=== PATIENT | female | born 1995 | race Caucasian/White ===

== ENCOUNTER 2022-11-10 06:15 | Day surgery (SDC) | payer OTHER ==
[~2022-11-10] VITALS: Ht 162.6 cm; Wt 90.7 kg
[2022-11-10] MEDS ORDERED: ONDANSETRON 4 MG/2 ML VIAL ONE ×2 (07:00→08:05)
[2022-11-10] MEDS ORDERED: DEXAMETHASONE 4 MG/ML VIAL ONE ×2 (07:00→09:08)
[2022-11-10] MEDS ORDERED: MEPERIDINE 50 MG/ML SYR ONE ×2 (07:00→09:04)
[2022-11-10] MEDS ORDERED: fentaNYL citrate 0.05 MG/ML - 50mL vial IV ONE (07:00)
[2022-11-10] MEDS ORDERED: SEVOFLURANE 250 ML BTL INH ONE (07:00)
[2022-11-10] MEDS ORDERED: PROPOFOL 200 MG/20 ML VIAL IV ONE ×2 (07:00→07:14)
[2022-11-10] MEDS ORDERED: fentaNYL citrate 0.05 MG/ML VIAL ONE (07:14)
[2022-11-10 07:40] LABS: BASOPHILS # (AUTO) 0.1 K/uL (0.00-0.22); BASOPHILS % (AUTO) 0.7 % (0.0-2.0); EOSINOPHILS # (AUTO) 1.3 K/uL (0-0.4); EOSINOPHILS % (AUTO) 12.1 % (0.0-4.0); HEMOGLOBIN 13.3 g/dL (12.0-16.0); LYMPHOCYTES # (AUTO) 2.3 K/uL (2.5-16.5); LYMPHOCYTES % (AUTO) 21.4 % (20.5-51.1); MEAN CORPUSCULAR HEMOGLOBIN 26 pg (27-31); MEAN CORPUSCULAR HGB CONC 33 g/dL (33-37); MEAN CORPUSCULAR VOLUME 80.4 fL (80-94); MONOCYTES # (AUTO) 0.6 K/uL (0.8-1.0); MONOCYTES % (AUTO) 5.5 % (1.7-9.3); NEUTROPHILS # (AUTO) 6.6 K/uL (1.8-7.7); NEUTROPHILS % (AUTO) 60.3 % (42.2-75.2); PLATELET COUNT (AUTO) 440 K/uL (140-450); RED BLOOD CELL COUNT(AUTO) 5.09 MIL/uL (4.20-5.40); RED CELL DISTRIBUTION WIDTH 15.6 % (11.6-13.7); WHITE BLOOD COUNT (AUTO) 10.9 K/uL (4.8-10.8)
[2022-11-10] MEDS ORDERED: MEPERIDINE 25 MG/ML SYR IVP PRN (07:55)
[2022-11-10] MEDS ORDERED: LACTATED RINGERS 1,000 ML IV SCH (07:55)
[2022-11-10] MEDS ORDERED: HYDROmorphone 1 MG/ML AMP IVP PRN (07:55)
[2022-11-10] MEDS ORDERED: ONDANSETRON 4 MG/2 ML VIAL IVP PRN ×2 (07:55→09:55)
[2022-11-10] MEDS ORDERED: diphenhydrAMINE 50 MG/ML VIAL IVP PRN ×2 (07:55→09:55)
[2022-11-10 07:56] LABS: ALBUMIN 3.8 g/dL (3.4-5.0); ANION GAP 11.6 (8-16); CARBON DIOXIDE 27.3 mmol/L (21-32); CREATININE 0.7 mg/dL (0.6-1.3); POTASSIUM 3.9 mmol/L (3.5-5.1); TOTAL BILIRUBIN 0.3 mg/dL (0.0-1.0)
[2022-11-10] MEDS ORDERED: oxyCODONE/APAP 5/325 MG 1 TAB TAB PO PRN (09:55)
[2022-11-10] MEDS ORDERED: IBUPROFEN 800 MG TAB PO PRN (10:20)
[2022-11-10] MEDS ORDERED: IBUP-2213 PO (10:22)
== END 2022-11-10 11:00 | disposition home or self-care (01) ==
LOC: MDS 06:15 → MMU 06:50 → MDS 11:00
PROVIDERS: ATTEND Obstetrics & Gynecology
DX: N92.1 Excessive and frequent menstruation with irregular cycle (principal); N84.0 Polyp of corpus uteri; N84.1 Polyp of cervix uteri; N93.0 Postcoital and contact bleeding; E28.2 Polycystic ovarian syndrome; E03.9 Hypothyroidism, unspecified; N94.10 Unspecified dyspareunia; K52.9 Noninfective gastroenteritis and colitis, unspecified; E66.01 Morbid (severe) obesity due to excess calories; Z68.35 Body mass index [BMI] 35.0-35.9, adult; Z79.899 Other long term (current) drug therapy
CPT/HCPCS: 36415; 58558; 80053; 85025; 86886; 86900; 86901; J1100; J2175; J2405; J2704; J3010; J7120; 88305

== ENCOUNTER 2023-11-18 09:31 | Inpatient (IN) | payer OTHER ==
[~2023-11-18] VITALS: Ht 160 cm; Wt 106.6 kg
[~2023-11-18 09:31] MED LIST: IBUP-2213 PO
[2023-11-18] MEDS ORDERED: LACTATED RINGERS 500 ML IV SCH (13:00)
[2023-11-18] MEDS ORDERED: CARBOPROST 250 MCG/ML AMP IM PRN (13:00)
[2023-11-18] MEDS ORDERED: METHYLERGONOVINE 0.2 MG/ML AMP IM PRN (13:00)
[2023-11-18 13:09] VITALS: BP 110/67; PULSE 91; RESP 18; TEMP 97.9
[2023-11-18 13:27] LABS: BASOPHILS % (AUTO) 0.3 % (0.0-2.0); EOSINOPHILS # (AUTO) 0.1 K/uL (0-0.4); EOSINOPHILS % (AUTO) 0.8 % (0.0-4.0); HEMATOCRIT 39.2 % (36-48); HEMOGLOBIN 13.1 g/dL (12.0-16.0); LYMPHOCYTES # (AUTO) 1.7 K/uL (2.5-16.5); LYMPHOCYTES % (AUTO) 15.9 % (20.5-51.1); MEAN CORPUSCULAR HEMOGLOBIN 29 pg (27-31); MEAN CORPUSCULAR HGB CONC 34 g/dL (33-37); MEAN CORPUSCULAR VOLUME 87.9 fL (80-94); MONOCYTES # (AUTO) 0.7 K/uL (0.8-1.0); NEUTROPHILS # (AUTO) 7.9 K/uL (1.8-7.7); PLATELET COUNT (AUTO) 265 K/uL (140-450); RED BLOOD CELL COUNT(AUTO) 4.46 MIL/uL (4.20-5.40); RED CELL DISTRIBUTION WIDTH 14.3 % (11.6-13.7); WHITE BLOOD COUNT (AUTO) 10.4 K/uL (4.8-10.8)
[2023-11-18 13:44] LABS: ALBUMIN 2.8 g/dL (3.4-5.0); TOTAL BILIRUBIN 0.3 mg/dL (0.0-1.0); TOTAL PROTEIN, SERUM 6.4 g/dL (6.4-8.2)
[2023-11-18 13:49] LABS: APPEARANCE,URINE CLEAR (CLEAR); BILIRUBIN,URINE NEGATIVE (NEGATIVE); BLOOD, URINE TRACE-I (NEGATIVE); COLOR,URINE YELLOW (YELLOW); LEUKOCYTE ESTERASE ,URINE TRACE (NEGATIVE); NITRITE, URINE NEGATIVE (NEGATIVE); PH,URINE 6.5 (5.0-9.0); PROTEIN,URINE NEGATIVE (NEGATIVE); UGLUCOSE NEGATIVE (NEGATIVE); UROBILINOGEN,URINE 0.2 EU/dL (0.2 - 1)
[2023-11-18 13:58] LABS: ANION GAP 15.6 (8-16); CALCIUM 8.8 mg/dL (8.5-10.1); CARBON DIOXIDE 20.3 mmol/L (21-32); CREATININE 0.7 mg/dL (0.6-1.3); POTASSIUM 3.9 mmol/L (3.5-5.1)
[2023-11-18 13:59] LABS: BACTERIA,URINE FEW /HPF (None Seen); RBC,URINE 0-5 /HPF (0-5); WBC,URINE 0-5 /HPF (0-5)
[2023-11-18 14:00] LABS: SQUAMOUS EPITHELIAL CELL,UR 0-3 (FEW) /LPF (0-3 (FEW))
[2023-11-18 14:11] LABS: INR 0.9 (0.8-1.2); PARTIAL THROMBOPLASTIN TIME 25.2 secs (22-35.6); PROTHROMBIN TIME 9.5 secs (10.8-13.4)
[2023-11-18] MEDS: LACTATED RINGERS 1,000 ML IV SCH (23:11)
[2023-11-18] MEDS: MORPHINE SULFATE 10 MG/ML VIAL IVP PRN (23:45)
[2023-11-18] MEDS: ONDANSETRON 4 MG/2 ML VIAL IVP PRN (23:49)
[2023-11-19] MEDS: MORPHINE SULFATE 10 MG/ML VIAL IVP PRN (03:59)
[2023-11-19] MEDS ORDERED: MEDS-TO-BEDS MC SCH (09:00)
[2023-11-19] MEDS ORDERED: ROPIVACAINE 0.2%/NS PREMIX 200 ML EPI ONE ×2 (09:14→19:17)
[2023-11-19] MEDS: OXYTOCIN/0.9 % SODIUM CHLORIDE 500 ML IV SCH (10:13)
[2023-11-19] MEDS ORDERED: LIDOCAINE/EPI MPF 2%1:200000 10 ML VIAL INJ ONE (14:38)
[2023-11-19 21:01] VITALS: BP 119/79; PULSE 100; RESP 20; O2SAT 98
[2023-11-19] MEDS ORDERED: ceFAZolin 2,000 MG VIAL ONE (21:55)
[2023-11-19] MEDS: CITRIC ACID/SODIUM CITRATE 30 ML UDC ONE (22:06)
[2023-11-19] MEDS ORDERED: MORPHINE PRES FREE 5 MG/10 ML AMP IV ONE (23:03)
[2023-11-19] MEDS ORDERED: fentaNYL citrate 0.05 MG/ML VIAL ONE (23:03)
[2023-11-19] MEDS ORDERED: OXYTOCIN 10 UNITS/ML VIAL ONE (23:05)
[2023-11-19] MEDS ORDERED: ONDANSETRON 4 MG/2 ML VIAL IVP PRN (23:50)
[2023-11-19] MEDS ORDERED: NALOXONE 0.4 MG/ML VIAL IVP PRN ×3 (23:50)
[2023-11-20] MEDS: diphenhydrAMINE 50 MG/ML VIAL IVP PRN (01:02)
[2023-11-20] MEDS: KETOROLAC 30 MG/ML VIAL IM/IVP SCH (01:58)
[2023-11-20] MEDS ORDERED: OXYTOCIN/0.9 % SODIUM CHLORIDE 500 ML IV SCH (02:30)
[2023-11-20] MEDS ORDERED: oxyCODONE/APAP 5/325 MG 1 TAB TAB PO PRN (07:00)
[2023-11-20] MEDS ORDERED: MEASLES, MUMPS, AND RUBELLA 1 VIAL SQVAC ONE (07:00)
[2023-11-20] MEDS ORDERED: KETOROLAC 30 MG/ML VIAL IVP PRN (07:00)
[2023-11-20] MEDS ORDERED: METHYLERGONOVINE 0.2 MG/ML AMP IM PRN (07:00)
[2023-11-20] MEDS: SIMETHICONE 80 MG TAB.CHEW PO PRN (09:03)
[2023-11-20 09:25] LABS: BASOPHILS % (AUTO) 0.3 % (0.0-2.0); EOSINOPHILS % (AUTO) 0.2 % (0.0-4.0); HEMOGLOBIN 10.5 g/dL (12.0-16.0); LYMPHOCYTES # (AUTO) 1.2 K/uL (2.5-16.5); LYMPHOCYTES % (AUTO) 9.3 % (20.5-51.1); MEAN CORPUSCULAR HEMOGLOBIN 30 pg (27-31); MEAN CORPUSCULAR HGB CONC 34 g/dL (33-37); MONOCYTES # (AUTO) 0.9 K/uL (0.8-1.0); MONOCYTES % (AUTO) 6.6 % (1.7-9.3); NEUTROPHILS % (AUTO) 83.6 % (42.2-75.2); PLATELET COUNT (AUTO) 219 K/uL (140-450); RED BLOOD CELL COUNT(AUTO) 3.53 MIL/uL (4.20-5.40); RED CELL DISTRIBUTION WIDTH 13.9 % (11.6-13.7); WHITE BLOOD COUNT (AUTO) 13.1 K/uL (4.8-10.8)
[2023-11-20] MEDS: oxyCODONE/APAP 5/325 MG 1 TAB TAB PO PRN (19:56)
[2023-11-20] MEDS ORDERED: SIMETHICONE 80 MG TAB.CHEW PO PRN (21:00)
[2023-11-20] MEDS: DOCUSATE SOD/SENNA 50/8.6 MG 1 TAB PO SCH (21:01)
[2023-11-21] MEDS: oxyCODONE/APAP 5/325 MG 1 TAB TAB PO PRN (02:07)
[2023-11-21] MEDS ORDERED: CAMERA MC ONE (02:41)
[2023-11-21] MEDS: IBUPROFEN 800 MG TAB PO PRN (05:16)
[2023-11-21] MEDS: bisacodyL 5 MG TABEC PO PRN (09:59)
[2023-11-22] MEDS ORDERED: IBUP-2217 PO (13:33)
[2023-11-22] MEDS ORDERED: SIME80TA34 PO (13:33)
== END 2023-11-22 15:25 | disposition home or self-care (01) | DRG 540 ==
LOC: MLD 09:31 → OBSVTOIN 12:59 → MFCC 11-20 01:25
PROVIDERS: ADMIT Obstetrics & Gynecology; ATTEND Obstetrics & Gynecology
PROC: 10D00Z1 Extraction of Products of Conception, Low, Open Approach (ICD-10-PCS; principal; 2023-11-22)
DX: O48.0 Post-term pregnancy (principal); R71.0 Precipitous drop in hematocrit; O62.0 Primary inadequate contractions; Z37.0 Single live birth; Z3A.40 40 weeks gestation of pregnancy; O76 Abnormality in fetal heart rate and rhythm complicating labor and delivery
CPT/HCPCS: 36415; 51702; 80053; 81001; 85025; 85610; 85730; 86592; 86886; 86900; 86901; J1200; J1885; J2001; J2270; J2405; J2590; J2795; J3010; J7120